=== PATIENT | male | born 1990 | race African-American/Black ===

== ENCOUNTER 2022-06-30 12:54 | Emergency (ER) | payer SELFPAY ==
[~2022-06-30] VITALS: Ht 188 cm; Wt 77.0 kg
[2022-06-30] MEDS ORDERED: ONDANSETRON HCL 4MG/2ML INJ IV STA (14:54)
[2022-06-30] MEDS ORDERED: SODIUM CHLORIDE 0.9% 1,000 ML IV ONE (15:00)
[2022-06-30 15:37] LABS: BASOPHILS % 0.4 % (0.0-2.0); HEMATOCRIT. 52.2 % (42.0-52.0); HEMOGLOBIN. 17.3 g/dL (14.0-18.0); LYMPHOCYTES % 15.9 % (20.0-50.0); MEAN CORPUSCULAR HEMOGLOBIN 27.7 pg (28.0-32.0); MEAN CORPUSCULAR VOLUME 83.6 fL (80.0-94.0); MEAN PLATELET VOLUME 8.4 fl (7.4-10.4); NEUTROPHILS % 76.7 % (40.0-76.0); PLATELET 271 x1000/uL (130-400); RED BLOOD CELL COUNT 6.24 mill/uL (4.7-6.1); RED CELL DISTRIBUTION WIDTH 14.2 % (11.6-14.6)
[2022-06-30 15:42] LABS: CHLORIDE 90 mEq/L (98-107)
[2022-06-30 17:15] VITALS: BP 114/75
== END 2022-06-30 17:28 | disposition home or self-care (01) ==
LOC: ER 12:54
DX: F11.23 Opioid dependence with withdrawal (principal); N17.9 Acute kidney failure, unspecified; F12.10 Cannabis abuse, uncomplicated
CPT/HCPCS: 36415; 80053; 83690; 85025; 96361; 96374; 99283; J2405